=== PATIENT | female | born 1990 | race Caucasian/White ===

== ENCOUNTER 2017-06-10 23:40 | Emergency (ER) | payer MEDICAID ==
[~2017-06-10] VITALS: Ht 167.6 cm; Wt 59.0 kg
[2017-06-10 23:45] VITALS: BP 135/92
[2017-06-11] MEDS ORDERED: TDAP [DIPH/PERTUSSIS/TET] 0.5 ML VIAL IM ONE ×2 (00:09→00:30)
== END 2017-06-11 00:15 | disposition home or self-care (01) ==
LOC: ER 23:45
DX: L03.012 Cellulitis of left finger (principal); F10.10 Alcohol abuse, uncomplicated
CPT/HCPCS: 99283; A4606; Z7610; 90715

== ENCOUNTER 2018-02-15 18:38 | Emergency (ER) | payer MEDICAID ==
[~2018-02-15] VITALS: Ht 167.6 cm; Wt 76.2 kg
[2018-02-15 18:38] VITALS: BP 121/79
== END 2018-02-15 19:28 | disposition home or self-care (01) ==
LOC: ER 18:43
DX: L03.116 Cellulitis of left lower limb (principal); L03.311 Cellulitis of abdominal wall; Z91.018 Allergy to other foods
CPT/HCPCS: 99283; A4606; Z7610